=== PATIENT | female | born 1960 | race Caucasian/White ===

== ENCOUNTER → 2022-03-11 11:17 | Outpatient (BNVA) | payer BC, SELFPAY | PROVIDERS: Family Provider Family Medicine; PCP Family Medicine; Visit Provider Family Medicine | DX: Z00.00 Encounter for general adult medical examination without abnormal findings (principal); H53.2 Diplopia; Z51.81 Encounter for therapeutic drug level monitoring; Z13.220 Encounter for screening for lipoid disorders | CPT/HCPCS: 80053; 80061; 84146; 85025 ==

== ENCOUNTER → 2022-12-31 14:17 | Outpatient (BNVA) | payer BC, SELFPAY | PROVIDERS: Family Provider Family Medicine; PCP Family Medicine; Visit Provider Family Medicine | DX: Z00.00 Encounter for general adult medical examination without abnormal findings (principal); Z51.81 Encounter for therapeutic drug level monitoring; Z13.220 Encounter for screening for lipoid disorders; R53.81 Other malaise; R53.83 Other fatigue; E53.8 Deficiency of other specified B group vitamins; R47.9 Unspecified speech disturbances; R41.3 Other amnesia | CPT/HCPCS: 80053; 80061; 82607; 84439; 84443; 85025 ==

== ENCOUNTER 2023-01-14 08:38 | Outpatient (RCR) | payer BC, SELFPAY | END 2023-01-31 23:59 | disposition home or self-care (01) | LOC: SST 08:38 | PROVIDERS: PCP Family Medicine; Visit Provider Family Medicine | DX: R47.9 Unspecified speech disturbances (principal) | CPT/HCPCS: 92507; 92523 ==

== ENCOUNTER 2023-02-01 06:00 | Outpatient (RCR) | payer BC, SELFPAY | END 2023-03-03 23:59 | disposition home or self-care (01) | LOC: SST 06:00 | PROVIDERS: PCP Family Medicine; Visit Provider Family Medicine | DX: R47.9 Unspecified speech disturbances (principal) | CPT/HCPCS: 92507 ==

== ENCOUNTER 2023-03-04 06:00 | Outpatient (RCR) | payer BC, SELFPAY | END 2023-04-02 23:59 | disposition home or self-care (01) | LOC: SST 06:00 | PROVIDERS: PCP Family Medicine; Visit Provider Family Medicine | DX: R41.841 Cognitive communication deficit (principal); R47.9 Unspecified speech disturbances | CPT/HCPCS: 92507 ==

== ENCOUNTER → 2023-03-16 08:57 | Outpatient (BNVA) | payer BC, SELFPAY | PROVIDERS: PCP Family Medicine; Visit Provider Psychiatry & Neurology Neurology | DX: R41.3 Other amnesia (principal); R47.9 Unspecified speech disturbances; R53.81 Other malaise; R53.83 Other fatigue | CPT/HCPCS: 36415; 82306; 83090; 83735; 83921; 85651; 86140; 86160; 86162; 86235; 86255; 86376; 86431 ==

== ENCOUNTER 2023-03-30 09:02 | Outpatient (CLI) | payer BC, SELFPAY ==
--- NOTE | 2023-03-30 10:45 | USCV_ITS ---
Jazmin Arely Age: 62 Gender: F : 1960 Exam Date: 03/30/2023 09:36 Ordering Phys: Sinan Stoddard MD Technologist: OD [place] [facility] [place] Indication: tia ct/od Risk Factors: Previous Vascular Surgery: Right Brachial BP: / Left Brachial BP: / Right Left Velocity (cm/s) Spectral Plaque Velocity (cm/s) Spectral Plaque Syst/Diast Broadening Syst/Diast Broadening 56.10/ 18.70 Prox CCA 70.30 / 19.40 51.90/ 17.70 Mid CCA 73.80 / 24.10 52.60/ 16.50 Distal CCA 66.80 / 21.00 35.00/ 12.90 Prox ICA 55.20 / 22.50 52.20/ 19.50 Mid ICA 71.50 / 31.80 72.00/ 31.70 Distal ICA 67.20 / 28.70 63.50 ECA 73.00 1.28 ICA/CCA 0.97 Antegrade Vertebral Antegrade 55.50/ 14.50 cm/s 45.70/ 11.60 cm/s Tri Subclavian Tri 65.20 68.80 FINDINGS Comparison: none available. No significant elevation of systolic or diastolic velocities. Waveforms are normal. No significant amount of calcified plaque or intimal thickening identified. Antegrade vertebral arteries. CONCLUSIONS Normal carotid doppler ultrasound. Dr. Sinai Peacock DO (Electronically Signed) Final Date: 30 March 2023 11:08 S
== END 2023-03-30 09:03 | disposition home or self-care (01) ==
PROVIDERS: PCP Family Medicine; Visit Provider Psychiatry & Neurology Neurology
DX: R41.3 Other amnesia (principal)
CPT/HCPCS: 36415; 82306; 83090; 83735; 83921; 85651; 86140; 86160; 86162; 86235; 86255; 86376; 86431; 93880

== ENCOUNTER 2023-04-02 08:01 | Outpatient (CLI) | payer BC, SELFPAY ==
--- NOTE | 2023-04-02 08:15 | USCV_ITS ---
Arely Wu Age: 62 Gender: F : 1960 Exam Date: 04/02/2023 08:34 Ordering Phys: Sinan Stoddard MD Technologist: CT Exam Location: [facility] – [place] Indication: AMNESIA,MEMORY PROBLEMS BP: 130 / 67 HR: 67 Rhythm: Sinus Technical Quality: Adequate MEASUREMENTS (Male / Female) Normal Values 2D ECHO LV Diastolic Diameter PLAX 4.0 cm 4.2 - 5.9 / 3.9 - 5.3 cm LV Systolic Diameter PLAX 2.3 cm IVS Diastolic Thickness 0.7 cm 0.6 - 1.0 / 0.6 - 0.9 cm IVS Systolic Thickness 0.9 cm LVPW Diastolic Thickness 0.7 cm 0.6 - 1.0 / 0.6 - 0.9 cm LVPW Systolic Thickness 1.4 cm LVOT Diameter 2.0 cm LV Ejection Fraction 2D Teich 75.4 % LV Ejection Fraction MOD 2C 65.9 % LV Ejection Fraction 2C AL 68.6 % LA Diameter 2.6 cm Aorta at Sinotubular Diameter 2.9 cm IVC Diameter 2.0 cm M-MODE Aortic Annulus Diameter 2.3 cm LA Ao Ratio MM 1.2 MV E Point Septal Separation 0.3 cm DOPPLER AV Peak Velocity 119.0 cm/s LVOT Peak Velocity 109.0 cm/s AV Area Cont Eq vti 2.8 cm squared AV Area Cont Eq pk 2.9 cm squared MV Peak Velocity 66.0 cm/s MV Area PHT 4.6 cm squared Mitral E to A Ratio 0.7 MV E' Velocity 32.5 cm/s Mitral E to MV E' Ratio 5.5 Mitral E to LV E' Lateral Ratio 5.3 Mitral E to LV E' Septal Ratio 5.8 TR Peak Velocity 190.0 cm/s TR Peak Gradient 14.4 mmHg TR Mean Velocity 189.0 cm/s TR Mean Gradient 13.9 mmHg TR Velocity Time Integral 42.5 cm TV Peak E Velocity 72.0 cm/s Right Atrial Pressure 3.0 mmHg Pulmonary Artery Systolic Pressu 17.4 mmHg PV Peak Velocity 101.0 cm/s FINDINGS Left Ventricle Normal left ventricular size, systolic function and wall thickness, with no regional wall motion abnormalities. Left ventricular ejection fraction is estimated at 60 %. Normal diastolic function. Right Ventricle Normal right ventricular size and systolic function. Right ventricular systolic pressure 17.4 mmHg. Right Atrium Normal right atrial size. Left Atrium Normal left atrial size. Mitral Valve Structurally normal mitral valve. No mitral valve stenosis. Trace mitral valve regurgitation. Aortic Valve Structurally normal trileaflet aortic valve. No aortic valve stenosis. No aortic valve regurgitation. Tricuspid Valve Structurally normal tricuspid valve. No tricuspid valve stenosis. Trace to mild tricuspid valve regurgitation. Pulmonic Valve Structurally normal pulmonic valve. No pulmonary valve stenosis. Trace pulmonary valve regurgitation. Pericardium No pericardial effusion. Aorta Normal size aortic root and proximal ascending aorta. IVC Normal IVC dimension with >50% respiratory change of the inferior vena cava. CONCLUSIONS 1. Normal left ventricular size, systolic function and wall thickness, with no regional wall motion abnormalities. Left ventricular ejection fraction is estimated at 60 %. Normal diastolic function. 2. Trace to mild tricuspid valve regurgitation. 3. No prior similar studies to compare. Nevaeh Grover MD (Electronically Signed) Final Date: 03 April 2023 08:42 S
--- NOTE | 2023-04-02 09:30 | MR_ITS ---
WS: [id number] MRI HEAD WITHOUT CONTRAST TECHNIQUE: Sagittal T1, T2 axial, T2 axial FLAIR, axial and coronal T1 images, axial susceptibility w eighted imaging, axial diffusion weighted images, and coronal T2 images were obtained. CLINICAL INFORMATION: R41.3 - Other amnesia COMPARISON: None. FINDINGS: No evidence restricted diffusion to suggest acute ischemia. Ventricular system and basal cisterns are patent. No suspicious intracranial signal abnormalities. Normal duffy-white differentiation. Normal p osterior fossa. Normal vascular flow voids at the skull base. No extra axial fluid collections. Paran margarito sinuses and mastoid air cells well aerated. Small chronic lacunar infarct LEFT cerebellum. No he mosiderin on susceptibly weighted images. Normal optic chiasm and pituitary infundibulum. Mild symmetric atrophy temporal lobes and hippocampal formations. MR/MR head wo con* [id number] IMPRESSION: 1. No evidence of restricted diffusion to suggest acute ischemia. 2. Small chronic lacunar infarct LEFT cerebellum. 3. No other suspicious intracranial signal abnormalities. 4. No hemosiderin on susceptibly weighted images. 5. Mild symmetric atrophy temporal lobes and hippocampal formations. 6. No other suspicious findings.
== END 2023-04-02 08:02 | disposition home or self-care (01) ==
PROVIDERS: PCP Family Medicine; Visit Provider Psychiatry & Neurology Neurology
DX: R41.3 Other amnesia (principal); R47.9 Unspecified speech disturbances; R53.81 Other malaise; R53.83 Other fatigue; I07.1 Rheumatic tricuspid insufficiency
CPT/HCPCS: 70551; 83090; 86780; 93306

== ENCOUNTER 2023-04-03 06:00 | Outpatient (RCR) | payer OTHER, SELFPAY | END 2023-05-03 23:59 | disposition home or self-care (01) | LOC: SST 06:00 | PROVIDERS: PCP Family Medicine; Visit Provider Family Medicine | DX: R47.9 Unspecified speech disturbances (principal) | CPT/HCPCS: 92507 ==

== ENCOUNTER → 2023-04-27 13:12 | Outpatient (BNVA) | payer OTHER, SELFPAY | PROVIDERS: PCP Family Medicine; Visit Provider Psychiatry & Neurology Neurology | DX: G31.89 Other specified degenerative diseases of nervous system (principal); F02.80 Dementia in other diseases classified elsewhere, unspecified severity, without behavioral disturbance, psychotic disturbance, mood disturbance, and anxiety | CPT/HCPCS: 99212 ==

== ENCOUNTER 2023-05-04 06:00 | Outpatient (RCR) | payer OTHER, SELFPAY | END 2023-06-03 23:59 | disposition home or self-care (01) | LOC: SST 06:00 | PROVIDERS: PCP Family Medicine; Visit Provider Family Medicine | DX: R41.841 Cognitive communication deficit (principal); R47.9 Unspecified speech disturbances | CPT/HCPCS: 92507 ==

== ENCOUNTER → 2023-06-22 15:10 | Outpatient (BNVA) | payer OTHER, SELFPAY | PROVIDERS: PCP Family Medicine; Visit Provider Psychiatry & Neurology Neurology | DX: R41.3 Other amnesia (principal) | CPT/HCPCS: 99212 ==

== ENCOUNTER → 2023-10-06 13:12 | Outpatient (BNVA) | payer OTHER, SELFPAY | PROVIDERS: PCP Family Medicine; Visit Provider Psychiatry & Neurology Neurology | DX: R41.3 Other amnesia (principal) | CPT/HCPCS: 82306; 99212 ==

== ENCOUNTER → 2024-01-19 14:04 | Outpatient (BNVA) | payer OTHER, SELFPAY | PROVIDERS: PCP Family Medicine; Visit Provider Psychiatry & Neurology Neurology | DX: R41.3 Other amnesia (principal) | CPT/HCPCS: 99212 ==

== ENCOUNTER → 2025-01-17 16:00 | Outpatient (BNVA) | payer OTHER, SELFPAY | PROVIDERS: PCP Family Medicine; Visit Provider Psychiatry & Neurology Neurology | DX: R41.3 Other amnesia (principal); T45.2X1A Poisoning by vitamins, accidental (unintentional), initial encounter | CPT/HCPCS: 36415; 82306; 82542; 83520 ==

== ENCOUNTER → 2025-05-02 16:44 | Outpatient (BNVA) | payer OTHER, SELFPAY | PROVIDERS: PCP Family Medicine; Visit Provider Psychiatry & Neurology Neurology | DX: N18.9 Chronic kidney disease, unspecified (principal); R41.3 Other amnesia; G30.9 Alzheimer's disease, unspecified; F02.80 Dementia in other diseases classified elsewhere, unspecified severity, without behavioral disturbance, psychotic disturbance, mood disturbance, and anxiety; E55.9 Vitamin D deficiency, unspecified | CPT/HCPCS: 36415; 80053; 82306; 82310; 82610; 82728; 82746; 83540; 83735; 83883; 83970; 84100; 84155; 84165; 84439; 84443; 84466; 85025; 85045; 86038; 86376 ==

== ENCOUNTER 2025-05-09 13:32 | Outpatient (CLI) | payer OTHER, SELFPAY ==
[2025-05-09 15:10] LABS: Total Volume Urine 2700 ml
[2025-05-09 15:16] LABS: Creatinine 24 Hour Urine 675.0 mg/dL (601-1689)
== END 2025-05-09 13:33 | disposition home or self-care (01) ==
LOC: LAB 13:41
PROVIDERS: PCP Family Medicine; Visit Provider Psychiatry & Neurology Neurology
DX: R53.81 Other malaise (principal); R53.83 Other fatigue
CPT/HCPCS: 82570

== ENCOUNTER 2025-05-29 13:36 | Oncology outpatient (recurring) (ONCR) | payer OTHER, SELFPAY ==
[2025-05-29 14:26] LABS: Hematocrit 38.5 % (36-47); Hemoglobin 13.10 g/dL (11.27-16.99); Mean Corpuscular HGB Conc 34.0 g/dL (30-55); Mean Corpuscular Hemoglobin 30.2 pg (27-33); Mean Corpuscular Volume 88.7 fl (85-98); Nucleated Red Blood Cells % 0 %; Platelet Count 209 10^3/cmm (157-399); Red Blood Count 4.34 10^6/uL (3.85-5.65); White Blood Count 7.05 10^3/uL (3.29-11.43)
[2025-05-29 14:43] LABS: Alanine Aminotransferase 13 U/L (0-33); Albumin Level 4.6 g/dL (3.5-5.2); Alkaline Phosphatase 68 U/L (35-105); Anion Gap 12.9 (5-19); Aspartate Amino Transferase 19 U/L (0-32); Blood Urea Nitrogen 24 mg/dL (8-23); Calcium 9.4 mg/dL (8.5-10.5); Carbon Dioxide 25 mmol/L (22-29); Chloride 105 mmol/L (98-107); Creatinine Clr Calc Pharmacy 65.7975; Globulin 3.5 g/dL (1.3-4.6); Glucose 87 mg/dL (65-115); Osmolality Calculated 291 mOsm/kg (285-295); Potassium 3.9 mmol/L (3.5-5.1); Sodium 139 mmol/L (136-145); Total Protein 8.1 g/dL (6.6-8.7)
[2025-05-31 05:55] LABS: PROTEIN, TOTAL 7.7 g/dL (6.1-8.1)
[2025-05-31 16:50] LABS: ALPHA 1 GLOBULIN 0.3 g/dL (0.2-0.3); ALPHA 2 GLOBULIN 0.6 g/dL (0.5-0.9); BETA 1 GLOBULIN 0.4 g/dL (0.4-0.6); BETA 2 GLOBULIN 0.3 g/dL (0.2-0.5)
[2025-06-01 13:45] LABS: KAPPA LIGHT CHAIN, FREE, SERUM 65.9 mg/L (3.3-19.4); KAPPA/LAMBDA LIGHT CHAINS FREE 6.05 (0.26-1.65); LAMBDA LIGHT CHAIN, FREE, SERU 10.9 mg/L (5.7-26.3)
== END 2025-06-03 23:59 | disposition home or self-care (01) ==
PROVIDERS: PCP Family Medicine; Visit Provider Internal Medicine Medical Oncology
DX: D47.2 Monoclonal gammopathy (principal)
CPT/HCPCS: 36415; 80053; 82784; 83883; 84155; 84165; 85025; 86334

== ENCOUNTER 2025-06-26 14:11 | Oncology outpatient (recurring) (ONCR) | payer OTHER, SELFPAY ==
--- NOTE | 2025-06-22 11:30 | PETR_ITS ---
PROCEDURE INFORMATION: Exam: PET/CT Skull Base to Mid-thigh Exam date and time: 06/22/2025 12:51 PM Age: 64 years old Clinical indication: Condition or disease; Primary cancer: Myeloma, LABS AND CLINICAL REPORTS: Glucose: 97 mg/dl Treatment strategy for malignancy (PET staging): Initial Staging (PI) TECHNIQUE: Imaging protocol: Following at least four-hour fasting and following the injection of radiopharmaceutical, low dose CT images were obtained. Then, PET images were obtained. Attenuation corrected images were constructed using the CT scan. Fused images of PET and CT were reviewed. The standardized uptake values (SUV) reported below are maximum values within a region of interest, expressed in gm/ml. Exam includes orbital meatal line to mid-thigh. SUV normalization method: BodyWeight Radiopharmaceutical: 9.53 mCi F-18 FDG (Fluorodeoxyglucose), IV. Time of imaging post radiopharmaceutical administration: 48 minutes Injection site: left ac COMPARISON: MR head wo con* [id number] 04/02/2023 9:30 AM FINDINGS: Brain: Visualized brain has normal physiologic uptake. Pharynx: No abnormal uptake. Larynx: No abnormal uptake. Lungs, pleura and trachea: No abnormal uptake. Heart: Normal physiologic uptake. Mediastinal space: No abnormal uptake. Liver: No abnormal uptake. Gallbladder and biliary ducts: No abnormal uptake. Pancreas: No abnormal uptake. Spleen: No abnormal uptake. Adrenal glands: No abnormal uptake. Kidneys and ureters: Normal physiologic uptake. Stomach and bowel: Colonic diverticulosis without diverticulitis. No abnormal metabolic activity. Vasculature: No abnormal uptake. Lymph nodes: No abnormal uptake. No lymphadenopathy in the head, neck, chest, abdomen, pelvis, and extremities. Skeleton: No lytic or sclerotic osseous lesions. No abnormal osseous metabolic activity to suggest active myeloma. Soft tissues: No abnormal uptake in the visualized head, neck, chest, abdomen, pelvis, and extremities. METRICS: Mediastinal blood pool: SUV max = 2.3 Liver uptake: SUV max = 2.7 PET/PET skull to thigh INIT [id number] IMPRESSION: No abnormal radiotracer uptake.
== END 2025-07-03 23:59 | disposition home or self-care (01) ==
PROVIDERS: PCP Family Medicine; Visit Provider Internal Medicine Medical Oncology
DX: Z53.9 Procedure and treatment not carried out, unspecified reason (principal)
CPT/HCPCS: 78815; A9552

== ENCOUNTER 2025-07-17 13:31 | Oncology outpatient (recurring) (ONCR) | payer OTHER, SELFPAY ==
[2025-07-17 13:54] LABS: Hematocrit 39.5 % (36-47); Hemoglobin 13.40 g/dL (11.27-16.99); Mean Corpuscular HGB Conc 33.9 g/dL (30-55); Mean Corpuscular Hemoglobin 30.6 pg (27-33); Mean Corpuscular Volume 90.2 fl (85-98); Nucleated Red Blood Cells % 0 %; Platelet Count 210 10^3/cmm (157-399); Red Blood Count 4.38 10^6/uL (3.85-5.65); White Blood Count 7.60 10^3/uL (3.29-11.43)
[2025-07-17 14:12] LABS: Alanine Aminotransferase 12 U/L (0-33); Albumin Level 4.6 g/dL (3.5-5.2); Alkaline Phosphatase 67 U/L (35-105); Anion Gap 14.2 (5-19); Aspartate Amino Transferase 20 U/L (0-32); Blood Urea Nitrogen 17 mg/dL (8-23); Calcium 9.3 mg/dL (8.5-10.5); Carbon Dioxide 26 mmol/L (22-29); Chloride 103 mmol/L (98-107); Creatinine Clr Calc Pharmacy 76.0547; Globulin 3.0 g/dL (1.3-4.6); Glucose 79 mg/dL (65-115); Osmolality Calculated 288 mOsm/kg (285-295); Potassium 4.2 mmol/L (3.5-5.1); Sodium 139 mmol/L (136-145); Total Protein 7.6 g/dL (6.6-8.7)
[2025-07-18 09:00] LABS: PROTEIN, TOTAL 7.5 g/dL (6.1-8.1)
[2025-07-18 15:09] LABS: KAPPA LIGHT CHAIN, FREE, SERUM 66.5 mg/L (3.3-19.4); KAPPA/LAMBDA LIGHT CHAINS FREE 5.99 (0.26-1.65); LAMBDA LIGHT CHAIN, FREE, SERU 11.1 mg/L (5.7-26.3)
[2025-07-19 11:04] LABS: ALPHA 1 GLOBULIN 0.3 g/dL (0.2-0.3); ALPHA 2 GLOBULIN 0.6 g/dL (0.5-0.9); BETA 1 GLOBULIN 0.4 g/dL (0.4-0.6); BETA 2 GLOBULIN 0.3 g/dL (0.2-0.5)
== END 2025-08-03 23:59 | disposition home or self-care (01) ==
PROVIDERS: PCP Family Medicine; Visit Provider Internal Medicine Medical Oncology
DX: Z53.9 Procedure and treatment not carried out, unspecified reason; D47.2 Monoclonal gammopathy
CPT/HCPCS: 36415; 80053; 82784; 83883; 84155; 84165; 85025; 86334